=== PATIENT | female | born 1970 | race African-American/Black ===

== ENCOUNTER 2017-06-27 12:03 | Emergency (ER) | payer MEDICARE, OTHER ==
[~2017-06-27] VITALS: Ht 165.1 cm; Wt 73.5 kg
[~2017-06-27 12:03] MED LIST: BC POWDER PACK1 EAC1 PO; CARDIZEM CD240 MG PO; LAMIVUDINE PO; MAGNESIUM OXIDE; MAGNESIUM250 MG PO; Z PROGRAF PO; Z.0.CARDIZEM30 MG; Z.0.CATAPRES0.1 MG PO; Z.0.CELLCEPT500 MG PO; Z.0.PREDNISONE10 MG PO
--- OUTSIDE RECORDS SUMMARY | 2017-06-27 12:07 | XMS REPORT | Clinical Summary ---
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 Disp. Refills Start End Date Status Date zolpidem (AMBIEN) 10 mg Take 10 mg by mouth Active tablet nightly as needed for sleep. docusate sodium (COLACE) Take 1 capsule (100 mg 60 capsule 0 08/31/19 Active 100 MG capsule total) by mouth 2 (two) 17 times a day as needed for constipation. polyethylene glycol Take 17 g by mouth daily 60 packet 0 08/31/19 Active (MIRALAX) 17 gram packet as needed for 17 constipation. magnesium oxide (MAG-OX) TAKE 1 TABLET BY MOUTH 11/22/19 Active 400 mg tablet TWICE DAILY 16 ALPRAZolam (XANAX) 2 MG Take 2 mg by mouth. Active tablet clonIDINE (CATAPRES) 0.1 Take 0.1 mg by mouth. 08/31/19 Active MG tablet 17 emtricitabine-tenofovir Take 1 tablet by mouth. 08/31/19 08/31/19 Active DF (TRUVADA) 200-300 mg 17 21 per tablet predniSONE (DELTASONE) 5 Take 5 mg by mouth. Active mg tablet tacrolimus (PROGRAF) 1 MG Take 2 mg by mouth. Active capsule diltiazem SR (CardIZEM TK ONE C PO BID 0 04/10/20 Active SR) 90 MG 12 hr capsule 17 hydrOXYzine (VISTARIL) 25 TK 1 C PO TID 0 03/25/20 Active MG capsule 17 mycophenolate (CELLCEPT) TK 1 T PO BID 5 03/24/20 Active 500 mg tablet 17 tacrolimus (PROTOPIC) 0.1 BRYAN EXT AA BID 0 04/09/20 Active % ointment 17 carisoprodol (SOMA) 350 TAKE 1 TABLET BY MOUTH 3 0 06/18/19 Active MG tablet TIMES A DAY NEEDED FOR 18 MUSCLE SPASMS FOR UP TO 15 DAYS mirtazapine (REMERON) 30 TK 1 T PO QHS 0 05/07/20 Active MG tablet 17 PROMETHEGAN 25 mg UNW AND I 1 SUP REC Q 6 H 0 04/25/20 Active suppository PRN NV 17 clonIDINE (CATAPRES) 0.1 TK 1 T PO BID 0 02/27/20 08/31/19 Discontin MG tablet 16 17 ued ALPRAZolam (XANAX) 2 MG TK 1 T PO QHS 0 02/27/20 07/12/19 Discontin tablet 16 17 ued TRUVADA 200-300 mg per TK 1 T PO daily 5 02/20/20 08/31/19 Discontin tablet 16 17 ued hydrocortisone 1 % cream 0 02/27/20 07/09/19 Discontin 16 17 ued hydrOXYzine (VISTARIL) 25 TK ONE C PO TID 0 02/27/20 07/09/19 Discontin MG capsule 16 17 ued lidocaine (XYLOCAINE) 2 % BRYAN AA BID ONLY. U NO 0 02/27/20 07/09/19 Discontin jelly LONGER THAN 5 DAYS 16 17 ued zolpidem (AMBIEN) 10 mg Take 10 mg by mouth 07/12/19 Discontin tablet nightly. 17 ued ondansetron ODT (ZOFRAN Take 1 tablet (4 mg 10 tablet 0 04/10/2004/08 Discontin ODT) 4 MG disintegrating total) by mouth every 8 16 17 ued tablet (eight) hours as needed for nausea or vomiting for up to 10 doses. promethazine (PHENERGAN) Take 12.5 mg by mouth 07/09/19 Discontin 12.5 MG tablet every 6 (six) hours as 17 ued needed for nausea or vomiting. promethazine (PHENERGAN) Insert 12.5 mg into the 07/12/19 Discontin 12.5 MG suppository rectum every 6 (six) 17 ued hours as needed for nausea or vomiting. mycophenolate (MYFORTIC) Take 180 mg by mouth 2 07/09/19 Discontin 180 MG EC tablet (two) times a day. 17 ued triamcinolone (KENALOG) Apply 1 application 08/28/19 Discontin 0.1 % cream topically 2 (two) times a 17 ued day. diltiazem SR (CardIZEM Take 90 mg by mouth 2 07/12/19 Discontin SR) 90 MG 12 hr capsule (two) times a day. 17 ued mycophenolate (CELLCEPT) Take 250 mg by mouth 2 07/12/19 Discontin 250 mg capsule (two) times a day. 17 ued traMADol (ULTRAM) 50 mg Take 1 tablet (50 mg 30 tablet 0 07/12/19 tablet total) by mouth every 6 17 17 (six) hours as needed for moderate pain for up to 7 days. tacrolimus (PROGRAF) 1 MG Take 2 capsules (2 mg 120 capsule 0 08/12/19 capsule total) by mouth 2 (two) 17 17 times a day for 30 days. mycophenolate (MYFORTIC) Take 1 tablet (180 mg 60 tablet 0 07/12/19 08/12/19 180 MG EC tablet total) by mouth 2 (two) 17 17 times a day for 30 days. sennosides-docusate Take 1 tablet by mouth 2 60 tablet 0 07/12/19 sodium (SENOKOT-S) 8.6-50 (two) times a day for 30 17 17 mg per tablet days. HYDROcodone-acetaminophen Take 1 tablet by mouth 07/12/19 07/20/19 (NORCO) 10-325 mg per every 6 (six) hours as 17 17 tablet needed for severe pain for up to 7 days. Max Daily Amount: 4 tablets zolpidem (AMBIEN) 5 MG Take 1 tablet (5 mg 30 tablet 0 07/12/19 tablet total) by mouth nightly 17 17 as needed for sleep for up to 30 days. mycophenolate (CELLCEPT) Take 250 mg by mouth 2 06/25/19 Discontin 250 mg capsule (two) times a day. 18 ued predniSONE (DELTASONE) 5 Take 5 mg by mouth daily. 06/25/19 Discontin mg tablet 18 ued diltiazem (CardIZEM) 90 Take 90 mg by mouth 2 06/25/19 Discontin MG tablet (two) times a day. 18 ued ALPRAZolam (XANAX) 2 MG Take 2 mg by mouth 06/25/19 Discontin tablet nightly as needed for 18 ued anxiety. tacrolimus (PROGRAF) 1 MG Take 2 mg by mouth 2 06/25/19 Discontin capsule (two) times a day. 18 ued traMADol (ULTRAM) 50 mg Take 1 tablet (50 mg 30 tablet 0 08/31/19 tablet total) by mouth every 6 17 17 (six) hours as needed for severe pain for up to 30 days. promethazine (PHENERGAN) Take 1 tablet (25 mg 30 tablet 0 08/31/19 08/31/19 Discontin 25 MG tablet total) by mouth every 6 17 17 ued (six) hours as needed for nausea or vomiting for up to 30 days. docusate sodium (COLACE) Take 1 capsule (100 mg 60 capsule 0 08/31/19 08/31/19 Discontin 100 MG capsule total) by mouth 2 (two) 17 17 ued times a day as needed for constipation for up to 30 days. polyethylene glycol Take 17 g by mouth 2 60 packet 0 08/31/19 Discontin (MIRALAX) 17 gram packet (two) times a day for 30 17 17 ued days. ciprofloxacin HCl (CIPRO) Take 1 tablet (250 mg 10 tablet 0 08/31/19 09/05/19 250 MG tablet total) by mouth 2 (two) 17 17 times a day for 5 days. TRUVADA 200-300 mg per Take 1 tablet by mouth 30 tablet 48 08/31/19 06/25/19 Discontin tablet daily. 17 18 ued clonIDINE (CATAPRES) 0.1 Take 1 tablet (0.1 mg 60 tablet 0 08/31/19 06/25/19 Discontin MG tablet total) by mouth 2 (two) 17 18 ued times a day. promethazine (PHENERGAN) Insert 1 suppository (25 30 0 08/31/19 25 MG suppository mg total) into the rectum suppository 17 17 every 6 (six) hours as needed for nausea or vomiting for up to 30 days. promethazine (PHENERGAN) Insert 1 suppository (25 12 0 10/28/1903/08 25 MG suppository mg total) into the rectum suppository 17 17 every 6 (six) hours as needed for nausea or vomiting for up to 30 days. cyclobenzaprine Take 1 tablet (10 mg 20 tablet 0 10/28/19 11/27/19 (FLEXERIL) 10 mg tablet total) by mouth 2 (two) 17 17 times a day as needed for muscle spasms for up to 30 days. ibuprofen (ADVIL,MOTRIN) Take 1 tablet (600 mg 20 tablet 0 12/16/19 01/15/20 600 MG tablet total) by mouth every 6 17 17 (six) hours as needed for mild pain for up to 30 days. clindamycin (CLEOCIN) 150 Take 1 capsule (150 mg 28 capsule 0 12/23/19 MG capsule total) by mouth every 6 17 17 (six) hours for 7 days. mycophenolate (CELLCEPT) Take 250 mg by mouth. 06/25/19 Discontin 250 mg capsule 18 ued Active Problems Problem Noted Date Intractable migraine without status migrainosus 08/27/2016 Syncope and collapse 07/09/2016 Generalized abdominal pain 03/16/2016 Encounters Date Type Specialty Care Team Description 06/27/2017 Emergency Emergency Medicine Thomas Goss MD 06/25/2017 Emergency Emergency Medicine Willie Ochoa MD Drug- seeking behavior (Primary Dx);Chronic migraine 04/23/2017 Emergency Emergency Medicine Saira Castillo, Chronic abdominal pain (Primary Dx);History of liver transplant 04/22/2017 Emergency Emergency Medicine 04/15/2017 Emergency Emergency Medicine Thomas Goss MD Migraine without status migrainosus, not intractable, unspecified migraine type (Primary Dx) 01/07/2017 Emergency Emergency Medicine Mehnaz Perkins DO Vasovagal syncope (Primary Dx) 12/15/2016 Emergency Emergency Medicine Adi Mueller, Thrombophlebitis (Primary Dx);Arm pain, anterior, left 10/27/2016 Emergency Emergency Medicine Yoan Frazier MD Acute intractable headache, unspecified headache type (Primary Dx);Cervical strain, acute, initial encounter 10/27/2016 Emergency Emergency Medicine iSssy Mclaughlin-Nya Lacey MD Chronic migraine (Primary Dx);Chronic pain syndrome;Drug-seeking behavior 10/04/2016 Emergency Emergency Medicine Mehnaz Perkins DO Status migrainosus (Primary Dx) 08/27/2016 Emergency Transplant Josh Hernandez Other migraine without - RMD Eric status migrainosus, 08/30/2016 Phillip Chi MD intractable (Primary Tawanda Juares MD Dx);Vomiting without Rubén Mclaughlin MD nausea, intractability of vomiting not specified, unspecified vomiting type;Drug-induced constipation;Intractable migraine without status migrainosus, unspecified migraine type;Generalized abdominal pain;Syncope and collapse 07/11/2016 Orders Only Procedural Cardiology Abdulkadir, Mariaa 07/09/2016 Hospital Transplant Mehnaz Perkins DO Syncope and collapse - Encounter Tawanda Juares MD (Primary Dx);Liver 07/12/2016 Nya Mclaughlin MD transplant recipient 07/09/2016 Procedure Pass Transplant 07/09/2016 Procedure Pass Transplant 07/04/2016 Emergency Emergency Medicine Joby Brandon MD Syncope and collapse (Primary Dx) 06/28/2016 Emergency Emergency Medicine Jewell Gonzáles MD Migraine without aura and without status migrainosus, not intractable (Primary Dx);Chronic low back pain, unspecified back pain laterality, with sciatica presence unspecified after 06/26/2016 Family History Medical History Relation Name Comments No Known Problems Father No Known Problems Mother Diabetes Other Hypertension Other Relation Name Status Comments Father Mother Other Social History Tobacco Use Types Packs/Day Years Used Date Never Smoker Smokeless Tobacco: Never Used Alcohol Use Drinks/Week oz/Week Comments No Sex Assigned at Date Recorded Not on file Last Filed Vital Signs Vital Sign Reading Time Taken Blood Pressure 185/115 06/27/2017 10:41 AM BUSINESS OFFICE ASSOCIATE Pulse 107 06/27/2017 10:41 AM BUSINESS OFFICE ASSOCIATE Temperature 36.8 C (98.2 F) 06/27/2017 10:41 AM BUSINESS OFFICE ASSOCIATE Respiratory Rate 18 06/27/2017 10:41 AM BUSINESS OFFICE ASSOCIATE Oxygen Saturation 100% 06/27/2017 10:41 AM BUSINESS OFFICE ASSOCIATE Inhaled Oxygen - - Concentration Weight 73.7 kg (162 lb 7.7 oz) 08/29/2016 5:00 AM CDT Height 165.1 cm (5' 5") 06/27/2017 10:42 AM BUSINESS OFFICE ASSOCIATE Body Mass Index 27.04 08/29/2016 5:00 AM CDT Plan of Treatment Health Maintenance Due Date Last Done Comments PAP SMEAR 12/18/1992 INFLUENZA VACCINE 12/18/2016 Procedures Procedure Name Priority Date/Time Associated Diagnosis Comments EEG AWAKE/ASLEEP LESS Routine 08/28/2016 Results for this THAN 41 MIN 10:18 AM CDT procedure are in the results section. ECHOCARDIOGRAM 2D Routine 07/11/2016 Results for this COMPLETE W MMODE SPECTRAL 4:23 PM BUSINESS OFFICE ASSOCIATE procedure are in the COLOR DOPPLER (61012) results section. after 06/26/2016 Results * Urinalysis (06/27/2017 11:25 AM) Only the most recent of 3 results within the time period is included. Component Value Ref Range Glucose, UA Negative Negative Bilirubin, UA Negative Negative Ketones, UA Negative Negative Specific gravity, UA 1.020 1.001 - 1.035 Blood, UA Trace (A) Negative pH, UA 5.0 5.0 - 8.5 Protein, UA 2+ (A) Negative Urobilinogen, UA <2.0 <2.0 Nitrite, UA Negative Negative Leukocyte esterase, UA Moderate (A) Negative Color, UA Yellow Appearance, UA Cloudy Specimen Performing Laboratory Urine [facility] DEPARTMENT OF PATHOLOGY AND GENOMIC MEDICINE, [facility] [address] [place] [address] [place] [address] * Urinalysis screen and microscopy, with reflex to culture (04/23/2017 10:27 AM) Only the most recent of 3 results within the time period is included. Component Value Ref Range Specimen site Clean catch Color, UA Yellow Appearance, UA Hazy Specific gravity, UA 1.012 1.001 - 1.035 pH, UA 5.0 5.0 - 8.5 Protein, UA 2+ (A) Negative Glucose, UA Negative Negative Ketones, UA Negative Negative Bilirubin, UA Negative Negative Blood, UA Moderate (A) Negative Nitrite, UA Negative Negative Urobilinogen, UA <2.0 <2.0 Leukocyte esterase, UA Moderate (A) Negative Epithelial cells, UA 1 /HPF WBC, UA 16 (H) 0 - 4 /HPF RBC, UA 5 (H) 0 - 2 /HPF Bacteria, UA Few None seen Yeast, UA None seen Yeast with pseudohyphae, None seen UA Specimen Performing Laboratory Urine [facility] DEPARTMENT OF PATHOLOGY AND GENOMIC MEDICINE [address] [place] [address] * Gram stain (04/23/2017 10:27 AM) Only the most recent of 3 results within the time period is included. Component Value Ref Range Gram stain result No WBC's Rare Gram positive rods Comment: Specimen Information Specimen Source: Urine Specimen Site: Clean catch Specimen Performing Laboratory Urine [facility] OF PATHOLOGY AND GENOMIC MEDICINE [address] [place] [id number] * Urine culture (04/23/2017 10:27 AM) Only the most recent of 3 results within the time period is included. Component Value Ref Range Urine culture isolate Mixed Gram positive shashi 10-5 cfu/ml (A) Comment: Specimen Information Specimen Source: Urine Specimen Site: Clean catch Specimen Performing Laboratory Urine [facility] OF PATHOLOGY AND GENOMIC MEDICINE [address] [place] [address] * Estimated GFR (04/15/2017 3:47 PM) Only the most recent of 10 results within the time period is included. Component Value Ref Range GFR Non Af Amer 54 (A) mL/min/1.73 m2 GFR Af Amer 65 mL/min/1.73 m2 Comment: Chronic kidney disease: <60 mL/min/1.73m2 Kidney failure: <15 mL/min/1.73m2 The estimated GFR is calculated from the IDMS-traceable Modification of Diet in Renal Disease Equation. The accuracy of the calculation is poor when the creatinine is normal. Calculated values >90 mL/min/1.73m2 are not reported. This equation has not been validated in children (<18 years), women, the elderly (>70 years), or ethnic groups other than Caucasians and Americans. Specimen Performing Laboratory Plasma specimen DEPARTMENT OF PATHOLOGY AND GENOMIC MEDICINE, [address] [address] * CBC with platelet and differential (04/15/2017 3:47 PM) Only the most recent of 10 results within the time period is included. Component Value Ref Range WBC 13.48 (H) 4.50 - 11.00 k/uL RBC 5.00 4.20 - 5.50 m/uL HGB 11.9 (L) 12.0 - 16.0 g/dL HCT 37.6 37.0 - 47.0 % MCV 75.2 (L) 82.0 - 100.0 fL MCH 23.8 (L) 27.0 - 34.0 pg MCHC 31.6 31.0 - 37.0 g/dL RDW - SD 47.0 37.0 - 55.0 fL MPV 10.7 8.8 - 13.2 fL Platelet count 511 (H) 150 - 400 k/uL Neutrophils 79.1 (H) 39.0 - 69.0 % Lymphocytes 16.8 (L) 25.0 - 45.0 % Monocytes 3.8 0.0 - 10.0 % Eosinophils 0.1 0.0 - 5.0 % Basophils 0.2 0.0 - 1.0 % Specimen Performing Laboratory Blood [facility] OF PATHOLOGY AND GENOMIC MEDICINE[address] [address] * Comprehensive metabolic panel (04/15/2017 3:47 PM) Only the most recent of 6 results within the time period is included. Component Value Ref Range Sodium 136 128 - 145 mEq/L Potassium 5.3 (H) 3.6 - 5.1 mEq/L CO2 21 18 - 33 mEq/L Chloride 110 (H) 98 - 108 mEq/L Glucose 116 73 - 118 mg/dL Calcium 9.5 8.0 - 10.3 mg/dL BUN 16 7 - 22 mg/dL Creatinine 1.1 0.6 - 1.2 mg/dL Alkaline phosphatase 132 42 - 141 U/L ALT 22 10 - 47 U/L AST 35 11 - 38 U/L Total bilirubin 0.4 0.2 - 1.6 mg/dL Albumin 4.6 3.3 - 5.5 g/dL Protein 8.3 (H) 6.4 - 8.1 g/dL Anion gap 5 (L) 7 - 15 mEq/L Comment: Starting from August , anion gap calculation no longer incorporates potassium. Please note the change. A/G ratio 1.2 0.7 - 3.8 Specimen Performing Laboratory Plasma specimen DEPARTMENT OF PATHOLOGY AND GENOMIC MEDICINE, [address] [address] * ECG ED Preliminary Interpretation - NOT AN ORDER (01/09/2017 7:25 AM) Only the most recent of 2 results within the time period is included. Malaika Perkins DO 01/09/20177:25 AM ECG ED Preliminary Interpretation - Not an Order Performed by: MEHNAZ PERKINS Authorized by: MEHNAZ PERKINS ECG reviewed by ED Physician in the absence of a supervisor post wave: yes Previous ECG: Previous ECG:Unavailable Interpretation: Interpretation: normal Rate: ECG rate:80 ECG rate assessment: normal Rhythm: Rhythm: sinus rhythm Ectopy: Ectopy: none QRS: QRS axis:Normal Conduction: Conduction: normal ST segments: ST segments:Normal * ECG 12 lead (01/07/2017 5:16 PM) Only the most recent of 4 results within the time period is included. Component Value Ref Range Ventricular rate 83 Atrial rate 83 MD interval 142 QRSD interval 76 QT interval 384 QTC interval 451 P axis 1 47 QRS axis 1 7 T wave axis 35 EKG impression Normal sinus rhythm-Normal ECG-In automated comparison with ECG of 27-AUG-2016 14:16,-No significant change was found- Specimen Performing Laboratory [facility] [address] [place] [address] * Smear review (10/27/2016 12:10 PM) Only the most recent of 2 results within the time period is included. Component Value Ref Range Platelet slide review Increased (A) Anisocytosis Moderate Polychromasia Moderate Ovalocytes Moderate Specimen Performing Laboratory DEPARTMENT OF PATHOLOGY AND GENOMIC MEDICINE, [address] [address] * Troponin, I-Stat (10/27/2016 12:10 PM) Only the most recent of 5 results within the time period is included. Component Value Ref Range Troponin, I-Stat 0.00 0.00 - 0.08 ng/mL Comment: 0.30 - 1.49 ng/ml May indicate increased risk of acute coronary syndrome. >=1.5 ng/ml Consistent with acute myocardial infarction. The diagnostic value of a single normal or non-diagnostic result is questionable. Serial samples at 2-6 hour intervals are required to rule out acute myocardial injury. Specimen Performing Laboratory Plasma specimen DEPARTMENT OF PATHOLOGY AND GENOMIC MEDICINE, [address] [address] * Lactic acid, I-Stat (10/27/2016 12:10 PM) Only the most recent of 3 results within the time period is included. Component Value Ref Range Lactic acid, I-Stat 1.2 0.5 - 2.2 mmol/L Specimen Performing Laboratory Plasma specimen [facility] DEPARTMENT OF PATHOLOGY AND GENOMIC MEDICINE [address] [place] [address] * Hepatic function panel (10/27/2016 12:10 PM) Component Value Ref Range Albumin 4.3 3.3 - 5.5 g/dL Alkaline phosphatase 124 42 - 141 U/L ALT 24 10 - 47 U/L AST 27 11 - 38 U/L Bilirubin direct 0.2 0.0 - 0.3 mg/dL Total bilirubin 0.4 0.2 - 1.6 mg/dL Protein 8.0 6.4 - 8.1 g/dL Specimen Performing Laboratory Plasma specimen [facility] OF PATHOLOGY AND GENOMIC MEDICINE[address] [address] * Basic metabolic panel (10/27/2016 12:10 PM) Only the most recent of 4 results within the time period is included. Component Value Ref Range Glucose 95 73 - 118 mg/dL BUN 13 7 - 22 mg/dL Calcium 9.4 8.0 - 10.3 mg/dL Creatinine 1.0 0.6 - 1.2 mg/dL Sodium 134 128 - 145 mEq/L Potassium 4.0 3.6 - 5.1 mEq/L Chloride 107 98 - 108 mEq/L CO2 21 18 - 33 mEq/L Anion gap 6 (L) 7 - 15 mEq/L Comment: Starting from August , anion gap calculation no longer incorporates potassium. Please note the change. Specimen Performing Laboratory Plasma specimen [facility] OF PATHOLOGY AND GENOMIC MEDICINE, [address] [address] * FK506 level (08/30/2016 5:35 AM) Only the most recent of 4 results within the time period is included. Component Value Ref Range FK506 level 5.4 ng/mL Comment: Therapeutic range 5-20 ng/mL for 12 hour trough. The range varies depending on the organ transplanted, time after transplantation and co-administered immunosuppressant therapies. Please use clinical judgment to interpret test result. Test performed using [employer] chemiluminescent microparticle immunoassay for Tacrolimus on the [employer] i System. Specimen Performing Laboratory [facility] DEPARTMENT OF PATHOLOGY AND GENOMIC MEDICINE [address] [place] [address] * XR Abdomen 1 Vw (08/29/2016 12:01 PM) Specimen Performing Laboratory [facility] [address] [place] [address] Narrative XR ABDOMEN 1 VW CLINICAL INDICATION:ABDOMINAL PAIN Constipation COMPARISON:None. IMPRESSION: Frontal view the abdomen demonstrates moderate stool throughout the descending colon. There is also prominent colonic gas centrally, probably in the sigmoid as opposed to transverse colon. Small bowel loops are unremarkable. Debris is noted within the stomach. No radiopaque calculi are identified. There are multiple rounded vascular phleboliths in the pelvis. Bones are intact with mild degenerative changes. [facility]-[id number] Procedure Note Interface, Radiology Results Incoming - 08/29/2016 12:08 PM CDT XR ABDOMEN 1 VW CLINICAL INDICATION: ABDOMINAL PAIN Constipation COMPARISON: None. IMPRESSION: Frontal view the abdomen demonstrates moderate stool throughout the descending colon. There is also prominent colonic gas centrally, probably in the sigmoid as opposed to transverse colon. Small bowel loops are unremarkable. Debris is noted within the stomach. No radiopaque calculi are identified. There are multiple rounded vascular phleboliths in the pelvis. Bones are intact with mild degenerative changes. [facility]-[id number] * EEG (routine) (08/28/2016 10:18 AM) Narrative EEG AWAKE AND ASLEEP Date of Service: 08/28/16 Awake Recording:The occipital dominant rhythm is 10 Hz. 18-22 Hz activity is present in all regions. Sleep Recording:No epileptiform activity was recorded. Hyperventilation: Not performed. Photic Stimulation: No abnormality elicited. Impression The patient was very sleep during the recording. The background activity is within the range of normal variation. No lateralized or epileptiform activity was recorded. ICD-10 Code: R569 * Urine drugs of abuse screen (08/28/2016 2:20 AM) Component Value Ref Range Amphetamine screen, urine Negative Barbiturate screen, urine Negative Benzodiazepine screen, Negative urine Cannabinoid screen, urine Negative Cocaine screen, urine Negative Methadone metabolite Negative (EDDP), urine Opiates screen, urine Negative Oxycodone screen, urine Negative Phencyclidine screen, Negative urine Tricyclic screen, urine Negative Comment: Drug screen minimum concentration of detectability Amphetamines 1000 ng/mL Barbiturates 200 ng/mL Benzodiazepines 300 ng/mL Cocaine 300 ng/mL Methadone 3 00 ng/mL Opiates 300 ng/mL Oxycodone 3 00 ng/mL Phencyclidine 25 ng/mL Cannabinoids 50 ng/mL Tricyclics 1000 ng/mL Negative test results indicates presumptive evidence of lack of clinically significant drug concentration in this urine specimen. Positive test results are presumptive evidence of clinically significant drug concentration in this urine specimen. Testing performed for medical purposes only. Specimen Performing Laboratory Urine [facility] DEPARTMENT OF PATHOLOGY AND GENOMIC MEDICINE [address] [place] [id number] * Amylase level (08/27/2016 5:35 PM) Component Value Ref Range Amylase 92 14 - 97 U/L Specimen Performing Laboratory Plasma specimen DEPARTMENT OF PATHOLOGY AND GENOMIC MEDICINE, [address] [address] * CT Head Wo Contrast (08/27/2016 2:33 PM) Only the most recent of 2 results within the time period is included. Specimen Performing Laboratory [address] [address] Narrative EXAMINATION:CT HEAD WO CONTRAST CLINICAL HISTORY:syncopeheadache COMPARISON:July 10, 2016 TECHNIQUE: CT imaging was performed with iterative reconstruction technique and/or automated exposure control to reduce radiation dose. Findings: No intracranial hemorrhage, acute transcortical ischemia, extra-axial fluid collections or parenchymal mass lesions. No skull fractures or aggressive bony lesions. Visualized paranasal sinuses and mastoid air cells are clear. IMPRESSION: No acute intracranial abnormalities. [facility]-[id number] Procedure Note Interface, Radiology Results Incoming - 08/27/2016 2:43 PM CDT EXAMINATION: CT HEAD WO CONTRAST CLINICAL HISTORY: syncope headache COMPARISON: July 10, 2016 TECHNIQUE: CT imaging was performed with iterative reconstruction technique and/or automated exposure control to reduce radiation dose. Findings: No intracranial hemorrhage, acute transcortical ischemia, extra-axial fluid collections or parenchymal mass lesions. No skull fractures or aggressive bony lesions. Visualized paranasal sinuses and mastoid air cells are clear. IMPRESSION: No acute intracranial abnormalities. [facility]-[id number] * XR Chest 2 Vw (08/27/2016 2:33 PM) Only the most recent of 3 results within the time period is included. Specimen Performing Laboratory [address] [address] Narrative EXAMINATION:XR CHEST 2 VW CLINICAL HISTORY:Fever COMPARISON:220 27 Technique:PA and lateral chest radiographs are obtained. IMPRESSION: The lungs, pleural spaces, cardiomediastinal silhouette and bones are normal. There is a string type device overlying the mediastinum on frontal view that is posterior to the patient. [facility]-[id number] Procedure Note Interface, Radiology Results Incoming - 08/27/2016 2:39 PM CDT EXAMINATION: XR CHEST 2 VW CLINICAL HISTORY: Fever COMPARISON: 220 27th Technique: PA and lateral chest radiographs are obtained. IMPRESSION: The lungs, pleural spaces, cardiomediastinal silhouette and bones are normal. There is a string type device overlying the mediastinum on frontal view that is posterior to the patient. [facility]-[id number] * Prothrombin time with INR (07/12/2016 5:33 AM) Only the most recent of 2 results within the time period is included. Component Value Ref Range Prothrombin time 13.7 12.0 - 15.0 sec INR 1.0 Comment: The International Normalized Ratio (INR) is a therapeutic monitoring tool for patients who are stable on oral anticoagulant therapy. An INR of 2.0-3.0 is suggested for deep vein thrombosis/pulmonary embolism. Specimen Performing Laboratory Blood [facility] DEPARTMENT OF PATHOLOGY AND GENOMIC MEDICINE [address] [place] [address] * Echocardiogram complete w contrast and 3D if needed (07/11/2016 4:23 PM) Specimen Performing Laboratory [facility] [address] [place] [address] Narrative Echocardiography Report [address] [place] [address] Pat.Name:Jared MIXON.ID:[id number] .Date: 07/11/2016 Refer.MD:TAWANDA JUARES MD Exam Time: 3:52:00 PMStudy Type:Routine Echo Height:65inWeight:166lb BSA: 1.83 m2 DOBAge:1970 ,45Y Sex: FEMALEBP: 139/86 HR:99 bpmSonogrphr: NABIL Zamorano Pat. Stat.:Inpatient Room:[facility] Study Status:Final Echo Event ID:[id number] Order ID:[id number] Reason for Study:Lightheadedness/ Presyncope/Syncope - Syncope when there are no other symptoms or signs of cardiovascular disease Procedures:2D Echo, Colorflow Doppler Race:B SUMMARY: Normal LV chamber size and systolic function No hemodynamically significant valvular pathology. FINDINGS: LV: LV size is normal. LV function is normal. Overall wall motionis normal. Estimated EF is 65-69% RV: RV size is difficult to assess. RV function is normal. LA: LA size is normal. RA: RA volume is difficult to assess. AO: Aortic root diameter is normal. SHARLENE: No pericardial effusion. AV: No structural AV abnormalities noted. MV: No structural MV abnormalities noted. PV: No structural PV abnormalities noted. TV: No structural TV abnormalities noted. Mild tricuspid regurgitation Mcmillan: LV relaxation is normal. LV filling pressure is normal. Other:Estimated PA systolic pressure is 22 mmHg, assuming a mean RAPof 5 mmHg. MEASUREMENTS: 2D Parasternal [place] LVOT 2 cmLVPWd 0.9 cm LVIDd4.2 cmIndex 2.3 cm/m LA Ds2.5 cm LVIDs2.6 cmAo An 2 cm LV%fs 38.1 % Ao Rtd 2.7 cm Index1.5 cm/m IVSd 0.9 cm Signed 07/11/2016 04:59 PM Joby Alcaraz M.D. Procedure Note Interface, Radiology Results In - 07/11/2016 4:59 PM BUSINESS OFFICE ASSOCIATE Echocardiography Report [address] [place] [id number] Pat.Name: THEA MIXON.ID: [id number] .Date: 07/11/2016 Refer.MD: TAWANDA JUARES MD Exam Time: 3:52:00 PM Study Type:Routine Echo Height: 65in Weight: 166lb BSA: 1.83 m2 Age: 9 1970,45Y Sex: FEMALE BP: 139/86 HR: 99 bpm Sonogrphr: NABIL Zamorano Pat. Stat.:Inpatient Room: [facility] Study Status:Final Echo Event ID:[id number] Order ID: [id number] Reason for Study:Lightheadedness/ Presyncope/Syncope - Syncope when there are no other symptoms or signs of cardiovascular disease Procedures:2D Echo, Colorflow Doppler Race: B SUMMARY: Normal LV chamber size and systolic function No hemodynamically significant valvular pathology. FINDINGS: LV: LV size is normal. LV function is normal. Overall wall motion is normal. Estimated EF is 65-69% RV: RV size is difficult to assess. RV function is normal. LA: LA size is normal. RA: RA volume is difficult to assess. AO: Aortic root diameter is normal. SHARLENE: No pericardial effusion. AV: No structural AV abnormalities noted. MV: No structural MV abnormalities noted. PV: No structural PV abnormalities noted. TV: No structural TV abnormalities noted. Mild tricuspid regurgitation Mcmillan: LV relaxation is normal. LV filling pressure is normal. Other: Estimated PA systolic pressure is 22 mmHg, assuming a mean RAP of 5 mmHg. MEASUREMENTS: 2D Parasternal [place] LVOT 2 cm LVPWd 0.9 cm LVIDd 4.2 cm Index 2.3 cm/m LA Ds 2.5 cm LVIDs 2.6 cm Ao An 2 cm LV%fs 38.1 % Ao Rtd 2.7 cm Index 1.5 cm/m IVSd 0.9 cm Signed 07/11/2016 04:59 PM Joby Alcaraz M.D. * Pv carotid duplex (07/11/2016 12:00 PM) Specimen Performing Laboratory [facility] [address] Vascular Ultrasound Laboratory Carotid Artery Duplex Report [address] [place] [address] For clinical quality assurance specialist purposes, the categorization of the degree of the stenosis of this exam is based on criteria described in the IAC carotid stenosis grading white paper( www.intersocietal.org/Vascular) and Meagan Mitchell., Ramila Jeff., et al. Carotid artery stenosis: belle-scale and Doppler US diagnosis--Society of Radiologists in Ultrasound Consensus Conference. Radiology. 2003 Nov; 229(2):340-6. Pat.Name:Jared MIXON.ID:[id number] .Date: 07/11/2016 Refer.MD:NYA MCLAUGHLIN MD Exam Time: 11:11:00 AM Study Type:Carotid Height:65inWeight:166lb BSA: 1.83 m2 DOBAge:1970 ,45Y Sex: FEMALESonogrphr: Mariaa Panchal RVT Pat. Stat.:Inpatient Room:[address] TapeVol: lizzy, Echo Event ID:[id number] Order ID:[id number] Reason for Study:Syncopal episode on . Race:B SUMMARY: PHYSICAL ASSESSMENT BloodPulsesCarotid Pressure Carotid TemporalBruit Right 123/81 ++0 Left 117/83 ++0 CAROTID ARTERY SCAN RIGHT: There is smooth intimal lining in the common carotid ,bulb, internal and external carotid artery.Colorflow is normal. LEFT: There is smooth intimal lining in the common carotid ,bulb, internal and external carotid artery.Colorflow is normal. PRELIMINARY FINDINGS 1. Normal carotid duplex exam. PHYSICIAN INTERPRETATION 1.Bilateral carotid artery examination demonstrates no evidence of plaque or occlusive disease. Carotid Findings:RightLeft Verteb.Flw Antegrade Antegrade Subclavian Triphasic Triphasic MEASUREMENTS: DOPPLER Right CCA Dist CCA Dist PSV 82.23 cm/sCCA Dist EDV 25.69 cm/s Right CCA Mid CCA Mid PSV80.61 cm/sCCA Mid EDV28.92 cm/s Right CCA Prox CCA Prox PSV 84.42 cm/sCCA Prox EDV 22.68 cm/s Right ECA ECA PSV69.31 cm/sECA EDV 14.38 cm/s Right ICA Dist ICA Dist PSV 106.44 cm/s ICA Dist EDV 43.45 cm/s Right ICA Mid ICA Mid CVB464.98 cm/s ICA Mid EDV56.37 cm/s Right ICA Prox ICA Prox PSV 85.46 cm/Dustin Prox EDV 38.61 cm/s Right Vertebral Vertebral PSV48.28 cm/sVertebral EDV24.06 cm/s Left CCA Dist CCA Dist PSV85.4 cm/sCCA Dist EDV 35.35 cm/s Left CCA Mid CCA Mid PSV95.09 cm/sCCA Mid EDV 28.9 cm/s Left CCA Prox CCA Prox PSV 91.86 cm/sCCA Prox EDV 27.28 cm/s Left ECA ECA PSV69.25 cm/sECA EDV 15.98 cm/s Left ICA Dist ICA Dist PSV 101.14 cm/s ICA Dist EDV50.5 cm/s Left ICA Prox ICA Prox PSV 59.54 cm/Dustin Prox EDV 27.27 cm/s Left Vertebral Vertebral PSV61.72 cm/sVertebral EDV 33.6 cm/s Left ICA Mid ICA Mid PSV 85.7 cm/Dustin Mid EDV 40.7 cm/s Right ICA/CCA Ratio ICA/CCA PSV 1.06 Left ICA/CCA Ratio ICA/CCA PSV 0.63 Signed 07/11/2016 02:09 PM Zackery Vazquez MD Procedure Note Interface, Radiology Results In - 07/11/2016 2:09 PM [facility] Vascular Ultrasound Laboratory Carotid Artery Duplex Report [address] [place] [address] For clinical quality assurance specialist purposes, the categorization of the degree of the stenosis of this exam is based on criteria described in the IAC carotid stenosis grading white paper( www.intersocietal.org/Vascular) and Eitan Mitchell, Caren Jeff, et al. Carotid artery stenosis: belle-scale and Doppler US diagnosis--Society of Radiologists in Ultrasound Consensus Conference. Radiology. 2003 Nov; 229(2):340-6. Pat.Name: THEA MIXON Pat.ID: [id number] .Date: 07/11/2016 Refer.MD: NYA MCLAUGHLIN MD Exam Time: 11:11:00 AM Study Type:Carotid Height: 65in Weight: 166lb BSA: 1.83 m2 Age: 9 1970,45Y Sex: FEMALE Sonogrphr: Mariaa Panchal RVT Pat. Stat.:Inpatient Room: [address] Tape Vol: ym, Echo Event ID:[id number] Order ID: [id number] Reason for Study:Syncopal episode on . Race: B SUMMARY: PHYSICAL ASSESSMENT Blood Pulses Carotid Pressure Carotid Temporal Bruit Right 123/81 + + 0 Left 117/83 + + 0 CAROTID ARTERY SCAN RIGHT: There is smooth intimal lining in the common carotid ,bulb, internal and external carotid artery. Colorflow is normal. LEFT: There is smooth intimal lining in the common carotid ,bulb, internal and external carotid artery. Colorflow is normal. PRELIMINARY FINDINGS 1. Normal carotid duplex exam. PHYSICIAN INTERPRETATION 1. Bilateral carotid artery examination demonstrates no evidence of plaque or occlusive disease. Carotid Findings: Right Left Verteb.Flw Antegrade Antegrade Subclavian Triphasic Triphasic MEASUREMENTS: DOPPLER Right CCA Dist CCA Dist PSV 82.23 cm/s CCA Dist EDV 25.69 cm/s Right CCA Mid CCA Mid PSV 80.61 cm/s CCA Mid EDV 28.92 cm/s Right CCA Prox CCA Prox PSV 84.42 cm/s CCA Prox EDV 22.68 cm/s Right ECA ECA PSV 69.31 cm/s ECA EDV 14.38 cm/s Right ICA Dist ICA Dist PSV 106.44 cm/s ICA Dist EDV 43.45 cm/s Right ICA Mid ICA Mid PSV 120.98 cm/s ICA Mid EDV 56.37 cm/s Right ICA Prox ICA Prox PSV 85.46 cm/s ICA Prox EDV 38.61 cm/s Right Vertebral Vertebral PSV 48.28 cm/s Vertebral EDV 24.06 cm/s Left CCA Dist CCA Dist PSV 85.4 cm/s CCA Dist EDV 35.35 cm/s Left CCA Mid CCA Mid PSV 95.09 cm/s CCA Mid EDV 28.9 cm/s Left CCA Prox CCA Prox PSV 91.86 cm/s CCA Prox EDV 27.28 cm/s Left ECA ECA PSV 69.25 cm/s ECA EDV 15.98 cm/s Left ICA Dist ICA Dist PSV 101.14 cm/s ICA Dist EDV 50.5 cm/s Left ICA Prox ICA Prox PSV 59.54 cm/s ICA Prox EDV 27.27 cm/s Left Vertebral Vertebral PSV 61.72 cm/s Vertebral EDV 33.6 cm/s Left ICA Mid ICA Mid PSV 85.7 cm/s ICA Mid EDV 40.7 cm/s Right ICA/CCA Ratio ICA/CCA PSV 1.06 Left ICA/CCA Ratio ICA/CCA PSV 0.63 Signed 07/11/2016 02:09 PM Zackery Vazquez MD * MRA Neck Wo Contrast (07/10/2016 7:18 AM) Specimen Performing Laboratory [facility] [address] [place] [id number] Narrative EXAMINATION:MRA NECK WO CONTRAST COMPARISON:November 10, 2010. CLINICAL HISTORY:STROKE COMMENTS:[id number] MRA of the neck including 3-D MIP reformats was obtained. FINDINGS:There is good flow in the vertebral arteries. The internal carotid arteries do not show any significant stenosis by NASCET criteria. IMPRESSION:No significant narrowing in the internal carotid arteries in the neck. [facility]-[id number] Procedure Note Interface, Radiology Results Incoming - 07/10/2016 7:45 AM BUSINESS OFFICE ASSOCIATE EXAMINATION: MRA NECK WO CONTRAST COMPARISON: November 10, 2010. CLINICAL HISTORY: STROKE COMMENTS: [id number] MRA of the neck including 3-D MIP reformats was obtained. FINDINGS: There is good flow in the vertebral arteries. The internal carotid arteries do not show any significant stenosis by NASCET criteria. IMPRESSION: No significant narrowing in the internal carotid arteries in the neck. [facility]-[id number] * MRI Brain Wo Contrast (07/10/2016 7:09 AM) Specimen Performing Laboratory [facility] [address] [place] [address] Narrative EXAMINATION:MRI BRAIN WO CONTRAST CLINICAL HISTORY:TIA COMPARISON:July 09, 2016 Findings: No intracranial hemorrhage, acute ischemia, extra-axial fluid collections or parenchymal mass lesions. No hydrocephalus. No suspicious focal bone marrow lesions. Single nonspecific focus of increased T2 signal within the left centrum semiovale anteriorly. This is of unclear clinical significance. This may be due to many etiologies including chronic lacunar insult, chronic demyelinating plaque and migraines. Major flow voids are maintained. IMPRESSION: No acute intracranial abnormalities or mass lesions. [facility]-[id number] Procedure Note Interface, Radiology Results Incoming - 07/10/2016 7:25 AM BUSINESS OFFICE ASSOCIATE EXAMINATION: MRI BRAIN WO CONTRAST CLINICAL HISTORY: TIA COMPARISON: July 09, 2016 Findings: No intracranial hemorrhage, acute ischemia, extra-axial fluid collections or parenchymal mass lesions. No hydrocephalus. No suspicious focal bone marrow lesions. Single nonspecific focus of increased T2 signal within the left centrum semiovale anteriorly. This is of unclear clinical significance. This may be due to many etiologies including chronic lacunar insult, chronic demyelinating plaque and migraines. Major flow voids are maintained. IMPRESSION: No acute intracranial abnormalities or mass lesions. [facility]-[id number] * Prothrombin time with INR, I-Stat (07/09/2016 1:20 PM) Component Value Ref Range POC prothrombin time 12.0 11.0 - 14.5 sec POC INR 1.0 Comment: The International Normalized Ratio (INR) is a therapeutic monitoring tool for patients who are stable on oral anticoagulant therapy. An INR of 2.0-3.0 is suggested for deep vein thrombosis/pulmonary embolism. Specimen Performing Laboratory Blood DEPARTMENT OF PATHOLOGY AND GENOMIC MEDICINE, [address] [address] * B natriuretic pep, I-Stat (07/09/2016 1:10 PM) Component Value Ref Range BNP, I-Stat <15 0 - 100 pg/mL Specimen Performing Laboratory Blood [facility] OF PATHOLOGY AND GENOMIC MEDICINE, [place] [id number] * Creatine kinase, total (CPK) (07/09/2016 1:10 PM) Only the most recent of 2 results within the time period is included. Component Value Ref Range Creatine kinase 111 30 - 190 U/L Specimen Performing Laboratory Plasma specimen DEPARTMENT OF PATHOLOGY AND GENOMIC MEDICINE, [address] [address] after 06/26/2016 Insurance Payer Benefit Subscriber ID Type Phone Address Plan / Group MEDICARE MEDICARE [id number] Medicare [place], [place] PART A AND B MEDICAID MEDICAID [id number] Medicaid
--- OUTSIDE RECORDS SUMMARY | 2017-06-27 12:07 | XMS REPORT ---
Author Author [facility] Address Unknown Phone Unavailable Care Team Providers Care Box Maker Name Role Phone OLY DEL CID Unavailable Unavailable MANN GRADY Unavailable Unavailable JEAN PIERRE WONG Unavailable Unavailable KIERSTEN PAULINO Unavailable Unavailable CRISTIAN, DAGO Unavailable Unavailable Problems This patient has no known problems. Allergies, Adverse Reactions, Alerts This patient has no known allergies or adverse reactions. Medications This patient has no known medications. Encounters Start Date/Time End Date/Time Encounter Type Admission Type Attending [facility] Care Facility Care Department Encounter ID 2017-01-24 12:01:00 2017-01-24 12:45:00 Emergency E SHEIKH JEAN PIERRE [facility] [address] [id number] Results Test Description Test Time Test Comments Text Results Atomic Results Result Comments URINALYSIS W/ MICROSCOPIC 2017-06-18 14:00:00 COLOR (BEAKER) (test tpet=764) Yellow CLARITY (BEAKER) (test kdtg=210) Clear SPECIFIC GRAVITY UA (BEAKER) (test lckt=341) 1.025 1.001-1.035 PH UA (BEAKER) (test bnuf=085) 5.5 5.0-8.0 PROTEIN UA (BEAKER) (test upyd=359) 100 mg/dL Negative GLUCOSE UA (BEAKER) (test qhbx=717) Negative Negative KETONES UA (BEAKER) (test cjvo=246) Negative Negative BILIRUBIN UA (BEAKER) (test omco=191) Negative Negative BLOOD UA (BEAKER) (test txxz=585) Large Negative NITRITE UA (BEAKER) (test qieb=626) Negative Negative LEUKOCYTE ESTERASE UA (BEAKER) (test ciqc=488) Negative Negative UROBILINOGEN UA (BEAKER) (test bqem=270) 0.2 mg/dL 0.2-1.0 BACTERIA (BEAKER) (test ppzw=044) Few RBC UA-MANUAL (BEAKER) (test jite=4790) 10-20 /HPF WBC UA-MANUAL (BEAKER) (test mdbq=3933) <5 /HPF SQUAMOUS EPITHELIAL MANUAL (BEAKER) (test numn=2858) <5 /HPF SOURCE(BEAKER) (test njoa=9892) SCREEN, [id number] 13:56:00* Test Item Value Reference Range Comments TEST URINE (BEAKER) (test vpaq=230) Negative [id number] 14:28:00* Test Item Value Reference Range Comments MAGNESIUM (BEAKER) (test mvsx=288) 1.7 mg/dL 1.6-2.6 COMPREHENSIVE METABOLIC [id number] 14:28:00* Test Item Value Reference Range Comments TOTAL PROTEIN (BEAKER) (test ozcu=745) 7.4 gm/dL 6.0-8.3 ALBUMIN (BEAKER) (test nmvh=9490) 3.9 g/dL 3.5-5.0 ALKALINE PHOSPHATASE (BEAKER) (test vgpu=003) 143 U/L 40-150 BILIRUBIN TOTAL (BEAKER) (test oblk=178) < mg/dL 0.2-1.2 SODIUM (BEAKER) (test enss=990) 138 meq/L 136-145 POTASSIUM (BEAKER) (test nxpm=284) 4.0 meq/L 3.5-5.1 CHLORIDE (BEAKER) (test zoof=710) 110 meq/L 98-107 CO2 (BEAKER) (test dsob=533) 18 meq/L 22-29 BLOOD UREA NITROGEN (BEAKER) (test cows=048) 19 mg/dL 7-21 CREATININE (BEAKER) (test wcct=921) 0.83 mg/dL 0.57-1.25 GLUCOSE RANDOM (BEAKER) (test lufv=514) 85 mg/dL 70-105 CALCIUM (BEAKER) (test mxaz=073) 8.8 mg/dL 8.4-10.2 AST (SGOT) (BEAKER) (test hcgo=431) 19 U/L 5-34 ALT (SGPT) (BEAKER) (test uzpj=466) 14 U/L 6-55 EGFR (BEAKER) (test qtum=7260) 90 mL/min/1.73 sq m ESTIMATED GFR IS NOT ACCURATE CREATININE CLEARANCE IN PREDICTING GLOMERULAR FILTRATION RATE. ESTIMATED GFR IS NOT APPLICABLE FOR DIALYSIS PATIENTS. BILIRUBIN, [id number] 14:28:00* Test Item Value Reference Range Comments BILIRUBIN DIRECT (BEAKER) (test xtlk=503) 0.1 mg/dL 0.1-0.5 TACROLIMUS [id number] 14:27:00* Test Item Value Reference Range Comments TACROLIMUS BLOOD (BEAKER) (test tcpl=056) 10.8 ng/mL 10.0-20.0 CBC W/PLT COUNT & AUTO [id number] 12:30:00* Test Item Value Reference Range Comments WHITE BLOOD CELL COUNT (BEAKER) (test vuyk=427) 8.7 K/ L 3.5-10.5 RED BLOOD CELL COUNT (BEAKER) (test zpwt=194) 4.49 M/ L 3.93-5.22 HEMOGLOBIN (BEAKER) (test nhpb=817) 10.4 GM/DL 11.2-15.7 HEMATOCRIT (BEAKER) (test nwqy=108) 34.3 % 34.1-44.9 MEAN CORPUSCULAR VOLUME (BEAKER) (test bxdk=847) 76.4 fL 79.4-94.8 MEAN CORPUSCULAR HEMOGLOBIN (BEAKER) (test svcl=383) 23.2 pg 25.6-32.2 MEAN CORPUSCULAR HEMOGLOBIN CONC (BEAKER) (test tvbl=122) 30.3 GM/DL 32.2- 35.5 RED CELL DISTRIBUTION WIDTH (BEAKER) (test fown=505) 17.2 % 11.7-14.4 PLATELET COUNT (BEAKER) (test ipsg=588) 398 K/CU MM 150-450 MEAN PLATELET VOLUME (BEAKER) (test ieqh=677) 9.9 fL 9.4-12.3 NUCLEATED RED BLOOD CELLS (BEAKER) (test moev=478) 0 /100 WBC 0-0 NEUTROPHILS RELATIVE PERCENT (BEAKER) (test mnde=981) 62 % LYMPHOCYTES RELATIVE PERCENT (BEAKER) (test knft=002) 27 % MONOCYTES RELATIVE PERCENT (BEAKER) (test abvb=708) 9 % EOSINOPHILS RELATIVE PERCENT (BEAKER) (test lqkx=000) 2 % BASOPHILS RELATIVE PERCENT (BEAKER) (test yjpo=035) 1 % NEUTROPHILS ABSOLUTE COUNT (BEAKER) (test ekgm=253) 5.35 K/ L 1.56-6.13 LYMPHOCYTES ABSOLUTE COUNT (BEAKER) (test cbqc=783) 2.34 K/ L 1.18-3.74 MONOCYTES ABSOLUTE COUNT (BEAKER) (test kxll=005) 0.76 K/ L 0.24-0.36 EOSINOPHILS ABSOLUTE COUNT (BEAKER) (test adef=486) 0.13 K/ L 0.04-0.36 BASOPHILS ABSOLUTE COUNT (BEAKER) (test zlxz=041) 0.09 K/ L 0.01-0.08 IMMATURE GRANULOCYTES-RELATIVE PERCENT (BEAKER) (test btzx=7181) 0 % 0-1 TACROLIMUS [id number] 13:20:00* Test Item Value Reference Range Comments TACROLIMUS BLOOD (BEAKER) (test gnzv=804) 4.4 ng/mL 10.0-20.0 [id number] 12:05:00* Test Item Value Reference Range Comments MAGNESIUM (BEAKER) (test iwes=050) 1.8 mg/dL 1.6-2.6 COMPREHENSIVE METABOLIC [id number] 12:05:00* Test Item Value Reference Range Comments TOTAL PROTEIN (BEAKER) (test pwxg=620) 7.5 gm/dL 6.0-8.3 ALBUMIN (BEAKER) (test mhte=7073) 4.0 g/dL 3.5-5.0 ALKALINE PHOSPHATASE (BEAKER) (test uimn=474) 122 U/L 40-150 BILIRUBIN TOTAL (BEAKER) (test ukoe=092) 0.2 mg/dL 0.2-1.2 SODIUM (BEAKER) (test lprw=105) 141 meq/L 136-145 POTASSIUM (BEAKER) (test asbc=002) 4.1 meq/L 3.5-5.1 CHLORIDE (BEAKER) (test uazk=279) 111 meq/L 98-107 CO2 (BEAKER) (test snyk=677) 21 meq/L 22-29 BLOOD UREA NITROGEN (BEAKER) (test fcbb=405) 17 mg/dL 7-21 CREATININE (BEAKER) (test zbhd=140) 0.87 mg/dL 0.57-1.25 GLUCOSE RANDOM (BEAKER) (test nvnh=122) 90 mg/dL 70-105 CALCIUM (BEAKER) (test pwqm=185) 9.1 mg/dL 8.4-10.2 AST (SGOT) (BEAKER) (test gtzo=417) 29 U/L 5-34 ALT (SGPT) (BEAKER) (test mrtd=391) 26 U/L 6-55 EGFR (BEAKER) (test bbdm=3058) 85 mL/min/1.73 sq m ESTIMATED GFR IS NOT ACCURATE CREATININE CLEARANCE IN PREDICTING GLOMERULAR FILTRATION RATE. ESTIMATED GFR IS NOT APPLICABLE FOR DIALYSIS PATIENTS. BILIRUBIN, [id number] 12:05:00* Test Item Value Reference Range Comments BILIRUBIN DIRECT (BEAKER) (test yomo=816) 0.1 mg/dL 0.1-0.5 CBC W/PLT COUNT & AUTO [id number] 12:04:00* Test Item Value Reference Range Comments WHITE BLOOD CELL COUNT (BEAKER) (test bymw=224) 8.6 K/ L 3.5-10.5 RED BLOOD CELL COUNT (BEAKER) (test kpge=294) 4.85 M/ L 3.93-5.22 HEMOGLOBIN (BEAKER) (test qkjq=221) 10.8 GM/DL 11.2-15.7 HEMATOCRIT (BEAKER) (test mslc=160) 35.6 % 34.1-44.9 MEAN CORPUSCULAR VOLUME (BEAKER) (test rjvi=407) 73.4 fL 79.4-94.8 MEAN CORPUSCULAR HEMOGLOBIN (BEAKER) (test awbn=524) 22.3 pg 25.6-32.2 MEAN CORPUSCULAR HEMOGLOBIN CONC (BEAKER) (test zlqp=459) 30.3 GM/DL 32.2- 35.5 RED CELL DISTRIBUTION WIDTH (BEAKER) (test pzxv=538) 20.3 % 11.7-14.4 PLATELET COUNT (BEAKER) (test obho=364) 375 K/CU MM 150-450 MEAN PLATELET VOLUME (BEAKER) (test pyao=007) 10.1 fL 9.4-12.3 NUCLEATED RED BLOOD CELLS (BEAKER) (test nxsc=572) 0 /100 WBC 0-0 NEUTROPHILS RELATIVE PERCENT (BEAKER) (test zdic=700) 61 % LYMPHOCYTES RELATIVE PERCENT (BEAKER) (test dkos=772) 28 % MONOCYTES RELATIVE PERCENT (BEAKER) (test lgol=927) 9 % EOSINOPHILS RELATIVE PERCENT (BEAKER) (test iipy=499) 1 % BASOPHILS RELATIVE PERCENT (BEAKER) (test zdkk=122) 1 % NEUTROPHILS ABSOLUTE COUNT (BEAKER) (test lorg=661) 5.22 K/ L 1.56-6.13 LYMPHOCYTES ABSOLUTE COUNT (BEAKER) (test qndx=307) 2.39 K/ L 1.18-3.74 MONOCYTES ABSOLUTE COUNT (BEAKER) (test dprs=913) 0.76 K/ L 0.24-0.36 EOSINOPHILS ABSOLUTE COUNT (BEAKER) (test qslx=715) 0.07 K/ L 0.04-0.36 BASOPHILS ABSOLUTE COUNT (BEAKER) (test jcdt=621) 0.08 K/ L 0.01-0.08 IMMATURE GRANULOCYTES-RELATIVE PERCENT (BEAKER) (test gdwz=0820) 1 % 0-1 TACROLIMUS [id number] 13:33:00* Test Item Value Reference Range Comments TACROLIMUS BLOOD (BEAKER) (test ecbk=864) 11.5 ng/mL 10.0-20.0 [id number] 11:57:00* Test Item Value Reference Range Comments MAGNESIUM (BEAKER) (test gzec=229) 2.1 mg/dL 1.6-2.6 COMPREHENSIVE METABOLIC [id number] 11:57:00* Test Item Value Reference Range Comments TOTAL PROTEIN (BEAKER) (test hzng=201) 7.0 gm/dL 6.0-8.3 ALBUMIN (BEAKER) (test yiot=8889) 3.9 g/dL 3.5-5.0 ALKALINE PHOSPHATASE (BEAKER) (test itrg=591) 125 U/L 40-150 BILIRUBIN TOTAL (BEAKER) (test lhsr=411) 0.2 mg/dL 0.2-1.2 SODIUM (BEAKER) (test ukrh=418) 138 meq/L 136-145 POTASSIUM (BEAKER) (test qcgz=971) 3.5 meq/L 3.5-5.1 CHLORIDE (BEAKER) (test pmkx=726) 111 meq/L 98-107 CO2 (BEAKER) (test uvyh=850) 18 meq/L 22-29 BLOOD UREA NITROGEN (BEAKER) (test yewa=994) 11 mg/dL 7-21 CREATININE (BEAKER) (test okgy=704) 0.87 mg/dL 0.57-1.25 GLUCOSE RANDOM (BEAKER) (test zyvw=907) 85 mg/dL 70-105 CALCIUM (BEAKER) (test ralx=872) 8.7 mg/dL 8.4-10.2 AST (SGOT) (BEAKER) (test omtd=417) 28 U/L 5-34 ALT (SGPT) (BEAKER) (test jcba=893) 24 U/L 6-55 EGFR (BEAKER) (test inyq=2073) 86 mL/min/1.73 sq m ESTIMATED GFR IS NOT ACCURATE CREATININE CLEARANCE IN PREDICTING GLOMERULAR FILTRATION RATE. ESTIMATED GFR IS NOT APPLICABLE FOR DIALYSIS PATIENTS. BILIRUBIN, [id number] 11:57:00* Test Item Value Reference Range Comments BILIRUBIN DIRECT (BEAKER) (test nreb=827) 0.1 mg/dL 0.1-0.5 CBC W/PLT COUNT & AUTO [id number] 11:18:00* Test Item Value Reference Range Comments WHITE BLOOD CELL COUNT (BEAKER) (test deok=589) 5.8 K/ L 4.0-10.0 RED BLOOD CELL COUNT (BEAKER) (test ikst=420) 3.85 M/ L 4.00-5.00 HEMOGLOBIN (BEAKER) (test vrkf=772) 9.0 GM/DL 12.0-15.0 HEMATOCRIT (BEAKER) (test kjcq=072) 29.6 % 36.0-45.0 MEAN CORPUSCULAR VOLUME (BEAKER) (test bdae=199) 77.0 fL 82.0-99.0 MEAN CORPUSCULAR HEMOGLOBIN (BEAKER) (test meco=419) 23.5 pg 27.0-33.0 MEAN CORPUSCULAR HEMOGLOBIN CONC (BEAKER) (test bmxx=425) 30.5 GM/DL 32.0- 36.0 RED CELL DISTRIBUTION WIDTH (BEAKER) (test qzvw=249) 15.9 % 10.3-14.2 PLATELET COUNT (BEAKER) (test rngq=904) 322 K/CU MM 150-430 MEAN PLATELET VOLUME (BEAKER) (test fmkq=861) 8.0 fL 6.5-10.5 NUCLEATED RED BLOOD CELLS (BEAKER) (test cbow=815) 0 /100 WBC 0-0 NEUTROPHILS RELATIVE PERCENT (BEAKER) (test xihz=809) 52 % LYMPHOCYTES RELATIVE PERCENT (BEAKER) (test detd=513) 35 % MONOCYTES RELATIVE PERCENT (BEAKER) (test umwf=782) 11 % EOSINOPHILS RELATIVE PERCENT (BEAKER) (test epgt=744) 1 % BASOPHILS RELATIVE PERCENT (BEAKER) (test vmes=117) 1 % NEUTROPHILS ABSOLUTE COUNT (BEAKER) (test krpb=445) 3.04 K/ L 1.80-8.00 LYMPHOCYTES ABSOLUTE COUNT (BEAKER) (test xveo=285) 2.02 K/ L 1.48-4.50 MONOCYTES ABSOLUTE COUNT (BEAKER) (test ftro=204) 0.63 K/ L 0.00-1.30 EOSINOPHILS ABSOLUTE COUNT (BEAKER) (test wafq=512) 0.08 K/ L 0.00-0.50 BASOPHILS ABSOLUTE COUNT (BEAKER) (test aekj=874) 0.06 K/ L 0.00-0.20 0.00Thyroid Stimulating Hormone (TSH)2016-08-19 03:56:00* Test Item Value Reference Range Comments TSH (test code=TSH) 3.96 mIU/mL 0.270-4.200 Thyroxine (T4)2016-08-19 03:55:00* Test Item Value Reference Range Comments T4, Total (test code=TT4) 6.5 ug/dL 4.6-12.0 T3, [id number] 03:55:00* Test Item Value Reference Range Comments T3, Total (test code=TT3) 105.1 ng/dL 80.0-200.0 Comprehensive Metabolic [id number] 03:46:00* Test Item Value Reference Range Comments Sodium (test code=NA) 139 mmol/L 135-145 Potassium (test code=K) 3.5 mmol/L 3.5-5.1 Chloride (test code=CL) 106 mmol/L 98-105 Carbon Dioxide (test code=CO2) 20 mmol/L 22-29 Glucose (test code=GLU) 105 mg/dL 70-115 Blood Urea Nitrogen (test code=BUN) 18 mg/dL 6-20 Creatinine (test code=CREAT) 1.1 mg/dL 0.5-0.9 Calcium (test code=CA) 9.1 mg/dL 8.3-10.5 Prot Total (test code=TP) 7.2 g/dL 6.4-8.3 Albumin (test code=ALB) 4.7 g/dL 3.5-5.2 A/G Ratio (test code=AGRATIO) 1.9 Ratio Globulin (test code=GLOB) 2.5 2.9-3.1 Bili Total (test code=TBIL) <0.1 mg/dL 0.1-0.9 Alk Phos (test code=APHOS) 138 U/L 35-104 AST (test code=AST) 17 U/L 1-32 ALT (test code=ALT) 14 U/L 1-33 BUN/Creatinine Ratio (test code=BCRATIO) 16.4 Anion Gap (test code=AGAP) 13 mmol/L 7-16 Estimated GFR (test code=GFR) >60 mL/min/1.73m2 eGFR (estimated Glomerular Filtration Rate) is an estimated value,calculated from the patient's serum creatinine using the MDRD equation.It is NOT the patient's actual GFR. The eGFR provides a more clinicallyuseful measure of kidney disease than serum creatinine alone.This calculation takes sex and race into account, if the informationis provided. If the race is not provided, and the patient isAfrican- [place], multiply by 1.212. If sex is not provided, and thepatient is female, multiply by 0.742. Results for patients <18 years ofage have not been validated by the MDRD study and should be interpretedwith caution.eGFR Result Interpretation:eGFR > or=60 is in the Normal RangeeGFR < 60 may mean kidney diseaseeGFR < 15 may mean kidney failureRanges recommended by the National Kidney Foundation,http://nkdep.nih.gov CK [id number] 03:44:00* Test Item Value Reference Range Comments CK (test code=CK) 98 U/L 26-192 CK [id number] 03:44:00* Test Item Value Reference Range Comments CK (test code=CK) 98 U/L 26-192 CKMB (test code=CKMB) <1.0 ng/mL 0.0-2.8 CKMB% (test code=CKMBP) No Calc % 0.0-3.4 Unable to calculate due to one or more values out of test measurement range. Troponin [id number] 03:43:00* Test Item Value Reference Range Comments Troponin T (test code=VIMAL) <0.010 ng/mL 0.000-0.090 Prothrombin [id number] 03:41:00* Test Item Value Reference Range Comments PT (test code=PT) 11.00 seconds 9.78-13.35 INR (test code=INR) 0.96 Ratio 0.6-1.2 Partial Thromboplastin [id number] 03:41:00* Test Item Value Reference Range Comments aPTT (test code=PTT) 27.80 seconds 24.39-37.25 Urinalysis [id number] 03:39:00* Test Item Value Reference Range Comments Color (test code=COLOR) Straw Yellow,Straw,Pl yellow Clarity (test code=CLAR) Clear Clear Specific [place] (test code=SPGR) 1.005 1.001-1.035 pH (test code=PH) 5.0 5.0-9.0 Ketone (test code=KET) Negative mg/dL Negative Glucose (test code=GLUCUR) Negative mg/dL Negative Protein (test code=PROT) Negative mg/dL Negative Bilirubin (test code=BILI) Negative mg/dL Negative Occult Blood (test code=UDOB) Negative Negative Urobilinogen (test code=UROB) 0.2 mg/dL 0.2-1.0 Nitrite (test code=NIT) Negative Negative Leuk Esterase (test code=LEUK) Large Negative Micros Exam (test code=MEXAM) Indicated Epithelial Cells (test code=EPI) 20-29 /LPF 0-30 WBC, Urine (test code=UWBC) 21-30 /HPF 0-5 RBC, Urine (test code=URBC) None Seen /HPF 0-5 Bacteria (test code=BACT) Moderate /HPF [id number] 03:37:00* Test Item Value Reference Range Comments Amphetamine (test code=AMPH) Negative Negative For diagnostic purposes only , positive results should always be assessedin conjunctionwith the patient's medical history,clinical examination and otherfindings.To fulfill legal requirements, a more specific alternate chemical methodmust be used inorder to obtain a Confirmed analytical result. GC/MS is the preferred confirmatory method. Barbiturates (test code=ELVIS) Negative Negative Benzodiazepine (test code=ENA) Negative Negative Cocaine (test code=COCA) Negative Negative Methadone (test code=MTHD) Negative Negative Opiates (test code=OPIA) Negative Negative PCP (test code=PCP) Negative Negative Propoxyphene (test code=PROPOX) Negative Negative THC (test code=THC) Negative Negative Alcohol, Urine (test code=ETOHU) <0.01 g/dL 0.00-0.01 CBC with [id number] 03:26:00* Test Item Value Reference Range Comments WBC (test code=WBC) 12.5 K/cumm 4.4-10.5 RBC (test code=RBC) 4.04 M/cumm 3.75-5.20 Hemoglobin (test code=HGB) 9.6 gm/dL 12.2-14.8 Hematocrit (test code=HCT) 31.4 % 36.5-44.4 MCV (test code=MCV) 77.6 fL 80-100 MCH (test code=MCH) 23.7 pg 27.0-32.5 MCHC (test code=MCHC) 30.6 g/dL 32.0-37.5 RDW (test code=RDW) 15.3 % 11.5-14.5 Platelet Count (test code=PLTCT) 360 K/cumm 140-440 MPV (test code=MPV) 9.0 fL Diff Method (test code=DIFFM) Auto Neutrophil (test code=NEUT) 54.0 % 36-70 Lymphocyte (test code=LYMPH) 38.2 % 12-44 Monocyte (test code=MONO) 6.4 % 0-11 Eosinophil (test code=EOS) 0.8 % 0-7 Basophil (test code=BASO) 0.5 % 0-2 Neutro Abs (test code=ANEUT) 6.7 K/cumm 1.6-7.4 Lymph Abs (test code=ALYMPH) 4.8 K/cumm 0.5-4.6 [place] Abs (test code=AMONO) 0.8 K/cumm 0.0-1.2 Eos Abs (test code=AEOS) 0.09 K/cumm 0.00-0.74 Baso Abs (test code=ABASO) 0.1 K/cumm 0.00-0.21 Hypochromic (test code=HYPO) Slight RAPID TROPONIN [id number] 11:02:00* Test Item Value Reference Range Comments RAPID TROPONIN I (BEAKER) (test czsw=1017) < ng/mL <0.05 [id number] 10:55:00* Test Item Value Reference Range Comments MAGNESIUM (BEAKER) (test zhjg=243) 2.0 mg/dL 1.5-3.0 COMPREHENSIVE METABOLIC [id number] 10:55:00* Test Item Value Reference Range Comments TOTAL PROTEIN (BEAKER) (test tsel=253) 8.1 gm/dL 6.0-8.5 ALBUMIN (BEAKER) (test unqv=2810) 4.5 g/dL 3.5-5.0 ALKALINE PHOSPHATASE (BEAKER) (test takd=367) 116 U/L 30-115 BILIRUBIN TOTAL (BEAKER) (test shbd=371) 0.2 mg/dL 0.1-1.2 SODIUM (BEAKER) (test xlja=604) 145 meq/L 135-148 POTASSIUM (BEAKER) (test jjqt=260) 3.5 meq/L 3.6-5.5 CHLORIDE (BEAKER) (test ojfu=047) 109 meq/L 98-106 CO2 (BEAKER) (test ipfj=108) 20 meq/L 24-32 BLOOD UREA NITROGEN (BEAKER) (test ymbq=195) 14 mg/dL 10-26 CREATININE (BEAKER) (test uvpo=769) 0.89 mg/dL 0.50-1.20 GLUCOSE RANDOM (BEAKER) (test qqhd=065) 97 mg/dL 70-110 CALCIUM (BEAKER) (test gbrf=496) 8.8 mg/dL 8.5-10.5 AST (SGOT) (BEAKER) (test gwfg=213) 19 U/L 5-40 ALT (SGPT) (BEAKER) (test bqas=657) 21 U/L 5-50 EGFR (BEAKER) (test yenf=2777) 84 mL/min/1.73 sq m ESTIMATED GFR IS NOT ACCURATE CREATININE CLEARANCE IN PREDICTING GLOMERULAR FILTRATION RATE. ESTIMATED GFR IS NOT APPLICABLE FOR DIALYSIS PATIENTS. CBC W/PLT COUNT & AUTO [id number] 10:48:00* Test Item Value Reference Range Comments WHITE BLOOD CELL COUNT (BEAKER) (test uofy=511) 8.6 10e3/ L 4.0-10.0 RED BLOOD CELL COUNT (BEAKER) (test xtub=048) 4.25 10e6/ L 4.00-5.00 HEMOGLOBIN (BEAKER) (test bovv=279) 10.9 g/dL 12.0-15.0 HEMATOCRIT (BEAKER) (test xaod=104) 33.9 % 36.0-45.0 MEAN CORPUSCULAR VOLUME (BEAKER) (test uzsq=633) 79.7 fL 82.0-99.0 MEAN CORPUSCULAR HEMOGLOBIN (BEAKER) (test vbcs=242) 25.6 pg 27.0-33.0 MEAN CORPUSCULAR HEMOGLOBIN CONC (BEAKER) (test chxt=906) 32.1 g/dL 32.0- 36.0 RED CELL DISTRIBUTION WIDTH (BEAKER) (test lspi=285) 12.1 % 10.3-14.2 PLATELET COUNT (BEAKER) (test dgyh=787) 414 10e3/ L 150-430 MEAN PLATELET VOLUME (BEAKER) (test yxxd=026) 7.4 fL 6.5-10.5 NEUTROPHILS RELATIVE PERCENT (BEAKER) (test udpf=277) 51 % LYMPHOCYTES RELATIVE PERCENT (BEAKER) (test wkmv=995) 38 % MONOCYTES RELATIVE PERCENT (BEAKER) (test lssj=361) 8 % EOSINOPHILS RELATIVE PERCENT (BEAKER) (test qbgc=202) 2 % BASOPHILS RELATIVE PERCENT (BEAKER) (test ibqh=869) 1 % NEUTROPHILS ABSOLUTE COUNT (BEAKER) (test dudf=720) 4.41 10e3/ L 1.80-8.00 LYMPHOCYTES ABSOLUTE COUNT (BEAKER) (test gdxk=029) 3.28 10e3/ L 1.48-4.50 MONOCYTES ABSOLUTE COUNT (BEAKER) (test aznh=777) 0.69 10e3/ L 0.00-1.30 EOSINOPHILS ABSOLUTE COUNT (BEAKER) (test gotf=826) 0.20 10e3/ L 0.00-0.50 BASOPHILS ABSOLUTE COUNT (BEAKER) (test divh=653) 0.05 10e3/ L 0.00-0.20
== END 2017-06-27 13:05 | disposition left against medical advice (07) ==
LOC: ER 12:03
DX: I10 Essential (primary) hypertension (principal); G44.89 Other headache syndrome; Z94.4 Liver transplant status